=== PATIENT | male | born 1940 | race Caucasian/White ===

== ENCOUNTER → 2018-01-11 | Outpatient (CLI) | payer OTHER | LOC: BHFA 08:30 | PROVIDERS: ATTEND Internal Medicine Cardiovascular Disease | DX: I48.91 Unspecified atrial fibrillation (principal) ==

== ENCOUNTER 2018-01-19 10:25 | Observation (INO) | payer OTHER ==
[2018-01-19] MEDS ORDERED: LIDOCAINE 1% 2 ML INJ ID PRN (11:10)
[2018-01-19] MEDS ORDERED: LR 1,000 ML IV ONE (11:10)
[2018-01-19] MEDS ORDERED: SURGIFLO MATRIX KIT WITH THROMBIN 8 ML TP ONE (11:40)
[2018-01-19] MEDS ORDERED: BUPIVACAINE/EPI 0.5% 30 ML SDV ONE (11:40)
[2018-01-19] MEDS ORDERED: BACITRACIN 50,000 UNITS/10 ML SYR IRR ONE (11:41)
[2018-01-19] MEDS ORDERED: VANCOMYCIN 1 GM VIAL ONE (11:41)
--- NOTE | 2018-01-19 12:03 | PDHPUP ---
History & Physical Update H&P update statement: This history and physical update is based on an assessment of the patient which was completed after admission or registration (within 24 hours), but prior to the surgery/procedure. H&P update: H&P reviewed & patient examined, no change in patient's condition since H&P completed
[2018-01-19] MEDS ORDERED: TRANEXAMIC ACID 1,000 MG in NS 100 ML IV ONE (12:04)
[2018-01-19] MEDS ORDERED: ACETAMINOPHEN 500 MG TAB PO ONE (12:04)
[2018-01-19] MEDS ORDERED: ceFAZolin 2 GM/DEXTROSE 100 ML IV ONE (12:04)
[2018-01-19] MEDS ORDERED: GABAPENTIN 300 MG CAP PO ONE (12:04)
--- NOTE | 2018-01-19 12:17 | PDANEPAE ---
ANE Past Medical History - Pulmonary History Hx Sleep Apnea: No - Endocrine History Hx Diabetes: No ANE Review of Systems Review of Systems: ANE Patient History - Allergies Allergies/Adverse Reactions: No Known Allergies Allergy (Unverified 09/23/14 14:06) - Home Medications Home Medications: GABAPENTIN 09/23/14 [Last Taken 01/18/18] Laperipexil 09/23/14 [Last Taken 01/18/18] - NPO status NPO Since - Liquids (Date): 01/18/18 NPO Since - Liquids (Time): 22:00 NPO Since - Solids (Date): 01/18/18 NPO Since - Solids (Time): 22:00 - Smoking Hx Smoking Status: Never smoked ANE Labs/Vital Signs - Vital Signs Blood Pressure: 146/96 Heart Rate: 69 Respiratory Rate: 18 O2 Sat (%): 95 Height: 180.34 cm Weight: 74.389 kg ANE Physical Exam - Airway Mallampati Score: Class 1 - ASA Status ASA Status: II ANE Anesthesia Plan Anesthesia Plan: general endotracheal anesthesia
[2018-01-19] MEDS ORDERED: MIDAZOLAM 2 MG/2 ML VIAL ONE (12:27)
[2018-01-19] MEDS ORDERED: fentaNYL 100 MCG/2 ML INJ ONE (12:28)
[2018-01-19] MEDS ORDERED: PROPOFOL/EMULSION 500 MG/50 ML BOTTLE IV ONE (12:28)
[2018-01-19] MEDS ORDERED: PROPOFOL 200 MG/20 ML VIAL ONE (12:28)
[2018-01-19] MEDS ORDERED: METOCLOPRAMIDE 10 MG/2 ML VIAL ONE (12:51)
[2018-01-19] MEDS ORDERED: ONDANSETRON 4 MG/2 ML VIAL ONE (12:51)
[2018-01-19] MEDS ORDERED: ROCURONIUM 50 MG/5 ML VIAL ONE (12:52)
[2018-01-19] MEDS ORDERED: KETOROLAC 30 MG/1 ML SDV ONE (14:45)
[2018-01-19] MEDS ORDERED: PHENYLEPHRINE HCL 100 MCG/ML SYR ONE (14:45)
[2018-01-19] MEDS ORDERED: BISACODYL 10 MG SUPP PR PRN (15:04)
[2018-01-19] MEDS ORDERED: ONDANSETRON DISINTEGRATING 4 MG TAB PO PRN (15:04)
[2018-01-19] MEDS ORDERED: LACTULOSE 20 GM/30 ML UDCUP PO PRN (15:04)
[2018-01-19] MEDS ORDERED: ONDANSETRON 4 MG/2 ML VIAL IVP PRN (15:04)
[2018-01-19] MEDS ORDERED: MAGNESIUM HYDROXIDE 30 ML UDCUP PO PRN (15:04)
[2018-01-19] MEDS ORDERED: diphenhydrAMINE 25 MG CAP PO PRN (15:04)
[2018-01-19] MEDS ORDERED: POLYETHYLENE GLYCOL 3350 17 GM PKT PO PRN (15:04)
--- NOTE | 2018-01-19 15:12 | SUROPNOTE ---
[facility] Operative Report - Surgery Date: 01/19/18 Pre-operative Diagnosis: Lumbar Spinal Stenosis Post-operative Diagnosis: Same Procedure: Open L3-5 Lumbar Laminectomy and Decompression Use of intra-operative fluoroscopy Use of a surgical microscope Surgeon: Villa Cordero MD Atv Mechanic: Liberty Weiss Anesthesia: General endotracheal anesthesia Findings: As expected lumbar spinal stenosis Estimated Blood Loss: 100mL Drains: Hemovac sewn to skin Specimens: None Complications: None Condition: Transferred to PACU in stable condition. Implants: None Indications: This patient was seen and examined by me and diagnosed with lumbar spinal stenosis. I have explained all options of treatment for the patient, and the patient has elected to proceed with operative management. I have explained all risks, benefits, and alternatives of the proposed procedure. The risks that we have discussed include , blindness, nerve damage, infection, dural tear, failure of surgery to alleviate pre-operative symptoms, and possible need for further operation. In addition to the aforementioned procedure, I discussed with the patient that other procedures may be indicated during the course of surgery that would be considered in the patients best interest. The patient expressed understanding of this. Pre-operative: The proposed incision site was marked in the pre-operative holding area by me. The patient was then taken to the operating room in stable condition. Following smooth induction of general anesthesia, the patient was positioned prone on a Gregorio table in mild reverse Trendelenburg with all down surfaces well-padded. The patient was then prepped and draped in the usual sterile fashion. Pre- operative antibiotics were administered within one hour of the incision. A surgical timeout was performed, and all parties involved in the procedure were in agreement on the correct patient, location, and procedure to be performed. Approach: The proposed levels were identified using C-arm fluoroscopy and the skin was marked for the proposed incision. The skin was then incised sharply through the dermis. Electrocautery was used to dissect the subdermal fat layer down to fascia and to coagulate bleeding vessels. Secondary pause: Two Lisa clamps were then placed on the spinous processes at both ends of the dissection. A lateral radiograph to identify the associated anatomy, and a small piece of bone from the associated spinous processes was removed for identification. A secondary spinal pause was then performed, and the level was confirmed with all parties participating in the operation. These spinous processes were noted to be at L3 and L5. of note, transitional anatomy noted from before surgery was compared to the MRI. Final levels were confirmed with everyone in the room. Decompression: All paraspinal muscles were dissected sub-periostally from the spinous processes and laminae. The dissection was then carried out to include the extent of decompression that was determined before surgery, with care being taken to preserve all facet capsules. The lateral pars was identified for all levels to be included in the proposed decompression. Using a combination of rongeur, rhonda, and Kerrison rongeurs, the spinous processes and laminae were removed at all levels to the subarticular lateral recess. Care was taken to leave a minimum of 8mm of bone from the lateral border of the pars at each decompressed level. The ligamentum flavum was resected at all levels. Additional care was taken to adequately decompress the lateral recess at all levels. At the cephalad and caudal vertebrae of the extent of the decompression , approximately 50% of the lamina was removed; at the remaining levels, a complete laminectomy was performed. At this time, a ball probe was used to probe all foraminae at the affected levels. Where necessary, a small Kerrison rongeur was used to decompress remaining bone and soft tissue so that all nerve roots would traverse freely through the foraminae. In total, complete laminectomies of L4 and L5 were performed. The caudal half of L3 was removed. Closure: The surgical field was then copiously irrigated with sterile saline. The dura mater was exceptionally thin. A pinpoint defect was noted at the L4 level centrally. Duraseal was applied over the area and no leak was noted. Vancomycin powder was then applied to the surgical field. A small drain was placed deep to the fascia and brought out of the skin superior and laterally. The drain was then sewn to skin. #1 braided and absorbable interrupted sutures were used to repair the fascia. Then 2-0 monofilament interrupted sutures were used to repair the dermal layer, and a separate 3-0 monofilament suture was used to repair the subcutaneous layer in a running fashion. All sutures used were absorbable. Topical adhesive was then applied to the skin and allowed to dry. A sterile island dressing was applied over the surgical incision. A surgical count was performed before initiation of closure and following the procedure, and all were correct. I was present for all critical portions of the procedure. Neuromonitoring: SSEP, MEP and EMG were used throughout the case from incision until the beginning of closure. There were no significant changes throughout the case, and SSEP signals were at their pre-surgical baseline levels before surgical closure was initiated. Surgical microscope use: A surgical microscope was utilized throughout the decompressive portion of this case. This was deemed necessary for safe and accurate surgical decompression of affected nerve roots. audiology assistant: A surgical device sales representative was used throughout the case, and deemed necessary for safe neural retraction, hemostasis, and suction. Recovery: The patient was extubated uneventfully in the operating room. The patient was taken to the recovery room in stable condition. Sequential compression devices for VTE prophylaxis were applied to the patients lower extremities, and were ordered to be used while the patient was non-ambulatory. Chemical VTE prophylaxis was considered to be contraindicated for this patient because of the risk of bleeding near the epidural space. Seven Cordero MD
[2018-01-19] MEDS ORDERED: LR 500 ML IV PRN (15:14)
[2018-01-19] MEDS ORDERED: NALOXONE HCL 0.4 MG/ML INJ IVP PRN (15:14)
[2018-01-19] MEDS ORDERED: fentaNYL 100 MCG/2 ML INJ IVP PRN (15:14)
--- NOTE | 2018-01-19 15:15 | POSTANESTH ---
Post Anesthetic Evaluation Cardiovascular Status: Normal, Stable Respiratory Status: Normal, Stable Level of Consciousness/Mental Status: Can Participate in Eval Pain Control: Adequate, Prn Tx Ordered Nausea/Vomiting Control: Adequate, Prn Tx Ordered Complications Possibly Related to Anesthesia: None Noted
[2018-01-19] MEDS ORDERED: oxyCODONE IR 5 MG TAB ONE (16:56)
[2018-01-19] MEDS: oxyCODONE IR 5 MG TAB PO PRN (16:59)
[2018-01-19] MEDS: METHOCARBAMOL 750 MG TAB PO PRN (18:53)
[2018-01-19] MEDS: GABAPENTIN 300 MG CAP PO SCH (20:35)
[2018-01-19] MEDS: SENNOSIDES/DOCUSATE SODIUM TAB PO SCH (20:35)
[2018-01-19] MEDS: FAMOTIDINE 20 MG TAB PO SCH (20:35)
[2018-01-19] MEDS: ACETAMINOPHEN 500 MG TAB PO SCH (22:34)
[2018-01-20] MEDS: ACETAMINOPHEN 500 MG TAB PO SCH (04:29)
[2018-01-20] MEDS: GABAPENTIN 300 MG CAP PO SCH (05:21)
[2018-01-20] MEDS: SENNOSIDES/DOCUSATE SODIUM TAB PO SCH (07:54)
[2018-01-20] MEDS: oxyCODONE IR 5 MG TAB PO PRN (07:55)
[2018-01-20] MEDS: FAMOTIDINE 20 MG TAB PO SCH (07:56)
--- NOTE | 2018-01-20 08:20 | GDS ---
HOSPITAL COURSE: The patient underwent an uneventful L3-L5 lumbar decompression on 01/19/2018. He d id remarkably well following the surgery. His pain was well controlled on oral regimen and there wer e no complications following the operation. He progressed well and was discharged home. Following discharge, the patient is to follow all instructions in his pre-surgical packet. In summar y, he is not to bend, lift, or twist for the next 6 weeks and is to wear the brace anytime he is up a nd around walking for any more than a very short distance. He will see me in 2 weeks time. He knows to call me if he has any neurological symptoms or signs and symptoms of infection. Of note, the hazel cobb also has my cell phone if any further issues arise. /[id number]/MODL
--- NOTE | 2018-01-20 08:30 | GPROG ---
DATE OF SERVICE: 01/20/2018 I saw and evaluated the patient during my morning rounds today. He is doing extremely well. He progressed. He notes that he has no radicular symptoms like he had before the operation and has been able to ambulate to the bathroom and back. He says he only has a mild amount of back pain, has not taken narcotics postoperatively, and overall is doing impressively well. PHYSICAL EXAM: Dressings clean, dry, and intact and left in place. The drain is filled with very minimal output. He has no sensory, motor, or vascular deficits. IMPRESSION: Postoperative day 1 status post L3 to L5 lumbar decompression ASSESSMENT/PLAN: We will discontinue the patient's drain today if he is ready to go. Will get him up with physical therapy. If he is deemed safe for discharge, we will discharge him home and he will follow up with me in 2 weeks time. /[id number]/MODL MTDD
[2018-01-20] MEDS: METHOCARBAMOL 750 MG TAB PO PRN (09:46)
--- NOTE | 2018-01-20 10:40 | ASMTLACE ---
[facility]MAN[facility] Length of stay for Answers: 1 day current admission Acuity / Level of Answers: No Care: Did the patient have an inpatient admission? Comorbidities - select Answers: Other Notes: Spinal stenosis all that apply # of Emergency department Answers: 0 visits in the last 6 months Score: 2 Date Signed: 01/20/2018 10:39 AM Electronically Signed By:Saira Blake RN
[2018-01-20 11:23] VITALS: BP 108/74
[2018-01-20] MEDS ORDERED: PRAMIPEXOLE 1 MG TAB PO SCH (21:00)
== END 2018-01-20 13:41 | disposition home or self-care (01) ==
LOC: F3E 10:25 → INTOOBSV 10:25 → F3N 17:50
PROVIDERS: ADMIT Orthopaedic Surgery Orthopaedic Surgery of the Spine; ATTEND Orthopaedic Surgery Orthopaedic Surgery of the Spine
DX: M48.061 Spinal stenosis, lumbar region without neurogenic claudication (principal); I48.0 Paroxysmal atrial fibrillation
CPT/HCPCS: 63005; 76001; 97161; 97166; 97535; G8978; G8979; G8980; G8987; G8988; G8989; J0690; J1885; J2250; J2370; J2405; J2704; J2765; J3010; J3370